=== PATIENT | female | born 1960 ===

== ENCOUNTER 2018-03-26 07:58 | Inpatient (IN) ==
[2018-03-26 08:51] LABS: Basophils % 0.2 % (0.0-0.8); Hematocrit 38.9 VOL% (35.7-47.0); Hemoglobin 12.2 GM/DL (12.0-16.0); Immature Granulocytes % 2.2 %; Immature Granulocytes Absolute 0.28 #; Lymphocytes # 0.7 10*3/uL (1.4-4.0); Lymphocytes % 5.1 % (21.3-54.2); Mean Corpuscular HGB Conc 31.4 GM/DL (32-36); Mean Corpuscular Hemoglobin 28 PG (27-34); Mean Corpuscular Volume 88.4 FL (87-102); Mean Platelet Volume 11.4 FL (9.6-12.0); Monocytes # 1.6 10*3/uL (0.11-0.8); Monocytes % 12.2 % (1.7-12.7); NRBC # 0.04 10*3/uL; Neutrophils # 10.4 10*3/uL (1.4-7.4); Neutrophils % 80.3 % (38.7-73.9); Platelet Count 131 T/CUMM (130-400); Red Cell Distribution Width 26.9 % (9.3-17.3)
[2018-03-26 09:15] LABS: Lactic Acid 14.2 MMOL/L (0.4-2.0)
[2018-03-26 09:16] LABS: Albumin 1.7 G/DL (3.4-5.0); Calcium 8.1 MG/DL (8.5-10.1); Osmolality,Calculated 273.7 MOS/KG (273-304); Potassium 5.8 MMOL/L (3.5-5.1); Total Protein 7.4 G/DL (6.4-8.3)
[2018-03-26 09:17] LABS: Macrocytosis 1+; Platelet Estimate Adequate; Poikilocytosis 1+
[2018-03-26 09:18] LABS: Anisocytosis 2+; Bilirubin,Total 16.5 MG/DL (0.2-1.0); Polychromasia Slight
[2018-03-26] MEDS ORDERED: MEROPENEM 1,000 MG in SODIUM CHLORIDE 0.9% 100 ML IV STA (10:11)
[2018-03-26] MEDS ORDERED: ALBUTEROL 2.5 MG/3 ML NEB RESP TX PRN (10:30)
[2018-03-26] MEDS ORDERED: ONDANSETRON 4 MG/2 ML VIAL IV PRN (10:30)
[2018-03-26] MEDS ORDERED: PROMETHAZINE 25 MG TABLET PO PRN (10:30)
[2018-03-26] MEDS ORDERED: SODIUM CHLORIDE 0.9% 1,000 ML IV STA (10:46)
[2018-03-26] MEDS: DEXTROSE 5% NACL 0.45% 1,000 ML IV SCH ×2 (11:13→18:00)
[2018-03-26 11:32] LABS: INR 3.5
[2018-03-26 11:33] LABS: Apearance,Urine CLOUDY (Clear); Blood, Urine Negative (Negative); Glucose,Urine (UA) Negative (Negative); Hyaline Casts,Urine 57 /LPF (0-3); Ketones,Urine 5 mg/dL (Negative); Mucus,Urine Moderate /LPF (Occasional); Nitrite,Urine Negative (Negative); Protein,Urine Negative; RBC,Urine 3 /HPF (0-4); Urine Color Amber (Yellow); Urine Specific Gravity 1.019 (1.001-1.035)
[2018-03-26 11:34] LABS: Bilirubin,Urine Moderate mg/dL (Negative)
[2018-03-26] MEDS: ENOXAPARIN 30 MG/0.3 ML SYRINGE SUBCUT SCH (11:38)
[2018-03-26 11:39] LABS: Partial Thromboplastin Time 61.8 SECS (0-40)
[2018-03-26] MEDS: LACTULOSE 20 GM/30 ML UDCUP PO SCH ×2 (13:35→21:14)
[2018-03-26 14:19] LABS: Hepatitis A Ab IgM Quant 0.21 Index; Hepatitis A Ab IgM Result Negative (Negative); Hepatitis B Core IgM Quant 0.05 Index; Hepatitis B Core IgM Result Negative (Negative); Hepatitis B Surface Ag Quant < 0.10 Index; Hepatitis B Surface Ag Result Negative (Negative); Hepatitis C Virus Ab Quant 0.13 Index; Hepatitis C Virus Ab Result Negative (Negative)
[2018-03-26 14:28] LABS: Apearance,Urine CLOUDY (Clear); Blood, Urine Negative (Negative); Glucose,Urine (UA) Negative (Negative); Hyaline Casts,Urine 72 /LPF (0-3); Ketones,Urine 5 mg/dL (Negative); Mucus,Urine Occasional /LPF (Occasional); Nitrite,Urine Negative (Negative); Protein,Urine Negative; RBC,Urine 1 /HPF (0-4); Squamous Epithelial Cell,Urine Occasional /HPF (0-10); Urine Color Amber (Yellow); Urine Specific Gravity 1.019 (1.001-1.035); WBC,Urine 3 /HPF (0-6); White Blood Cell Casts,Urine 17 /LPF (<1)
[2018-03-26 14:29] LABS: Bilirubin,Urine Moderate mg/dL (Negative)
[2018-03-26 15:51] LABS: Cancer Antigen 19-9 < 0.0 U/ML (0-37); Carcinoembryonic Antigen 5.9 NG/ML (0.0-5.0)
[2018-03-26 16:04] LABS: Albumin 1.5 G/DL (3.4-5.0); Calcium 7.1 MG/DL (8.5-10.1); Osmolality,Calculated 280.4 MOS/KG (273-304); Potassium 5.8 MMOL/L (3.5-5.1); Total Protein 6.2 G/DL (6.4-8.3)
[2018-03-26 16:07] LABS: Bilirubin,Total 15.8 MG/DL (0.2-1.0)
[2018-03-26] MEDS: PHENYLEPHRINE DRIP 40 MG/250 ML PREMIX IV PRN (18:58)
[2018-03-26] MEDS: MEROPENEM 500 MG in SODIUM CHLORIDE 0.9% 100 ML IV SCH (21:14)
[2018-03-26] MEDS: FAMOTIDINE 20 MG TABLET PO SCH (21:14)
[2018-03-27] MEDS: DEXTROSE 5% NACL 0.45% 1,000 ML IV SCH (02:11)
[2018-03-27 04:37] LABS: Basophils % 0.3 % (0.0-0.8); Eosinophils # 0.1 10*3/uL (0.0-0.87); Eosinophils % 0.8 % (0.00-10.9); Hematocrit 35.2 VOL% (35.7-47.0); Hemoglobin 11.1 GM/DL (12.0-16.0); Immature Granulocytes % 5.1 %; Immature Granulocytes Absolute 0.75 #; Lymphocytes # 0.9 10*3/uL (1.4-4.0); Lymphocytes % 5.8 % (21.3-54.2); Mean Corpuscular HGB Conc 31.5 GM/DL (32-36); Mean Corpuscular Hemoglobin 27 PG (27-34); Mean Corpuscular Volume 85.4 FL (87-102); Monocytes % 13.3 % (1.7-12.7); NRBC # 0.12 10*3/uL; Neutrophils % 74.7 % (38.7-73.9); Platelet Count 146 T/CUMM (130-400); Red Blood Count 4.12 MC/CUMM (3.8-5.5); Red Cell Distribution Width 26.6 % (9.3-17.3); White Blood Count 14.7 T/CUMM (4-12)
[2018-03-27 05:03] LABS: PT Patient Result 42.7 SECS
[2018-03-27 05:20] LABS: Albumin 1.6 G/DL (3.4-5.0); Calcium 7.1 MG/DL (8.5-10.1); Osmolality,Calculated 276.5 MOS/KG (273-304); Potassium 5.2 MMOL/L (3.5-5.1); Total Protein 6.2 G/DL (6.4-8.3)
[2018-03-27 05:24] LABS: Bilirubin,Total 16.7 MG/DL (0.2-1.0)
[2018-03-27 06:13] LABS: Band Neutrophils 6 % (0-10); Eosinophils 1 % (0-10); Lymphocytes 6 % (20-55); Metamyelocytes 1 %; Nucleated Red Blood Cells 1 (0-5); Segmented Neutrophils 79 % (50-85); Total Cells Counted 100
[2018-03-27 06:15] LABS: Giant Platelets Few; Hypochromasia 1+; Ovalocytes 2+; Platelet Estimate Normal; Polychromasia Few; Target Cells Few
[2018-03-27 06:16] LABS: Burr Cells 1+; Schistocytes Few
[2018-03-27] MEDS ORDERED: MORPHINE 4 MG/1 ML VIAL ONE (08:05)
[2018-03-27] MEDS ORDERED: METOCLOPRAMIDE 10 MG/2 ML VIAL IV PRN (08:06)
[2018-03-27] MEDS ORDERED: SODIUM CHLORIDE 0.9% 1,000 ML IV ONE (08:07)
[2018-03-27] MEDS: MORPHINE 4 MG/1 ML VIAL IV PRN ×2 (08:10→17:30)
[2018-03-27] MEDS: PHENYLEPHRINE DRIP 40 MG/250 ML PREMIX IV PRN ×2 (08:16→20:10)
[2018-03-27] MEDS: MEROPENEM 500 MG in SODIUM CHLORIDE 0.9% 100 ML IV SCH ×2 (09:13→21:26)
[2018-03-27] MEDS: DEXTROSE 5% NACL 0.9% 1,000 ML IV SCH ×2 (09:13→17:56)
[2018-03-27] MEDS: FAMOTIDINE 20 MG TABLET PO SCH ×2 (10:40→21:26)
[2018-03-27] MEDS: LACTULOSE 20 GM/30 ML UDCUP PO SCH ×2 (10:40→21:26)
[2018-03-27] MEDS: ENOXAPARIN 30 MG/0.3 ML SYRINGE SUBCUT SCH (10:41)
[2018-03-27] MEDS ORDERED: HEPARIN 5,000 UNIT/1 ML VIAL IV ONE (13:03)
[2018-03-27] MEDS ORDERED: HEPARIN DRIP 25,000 UNITS/500 ML PREMIX IV SCH (13:30)
[2018-03-28] MEDS: DEXTROSE 5% NACL 0.9% 1,000 ML IV SCH ×2 (03:20→09:38)
[2018-03-28] MEDS: MORPHINE 4 MG/1 ML VIAL IV PRN ×4 (03:27→22:37)
[2018-03-28 03:56] LABS: Basophils # 0.1 10*3/uL (0.0-0.2); Basophils % 0.3 % (0.0-0.8); Eosinophils % 0.1 % (0.00-10.9); Hematocrit 36.3 VOL% (35.7-47.0); Hemoglobin 11.4 GM/DL (12.0-16.0); Immature Granulocytes % 6.4 %; Immature Granulocytes Absolute 0.92 #; Lymphocytes # 0.7 10*3/uL (1.4-4.0); Lymphocytes % 4.7 % (21.3-54.2); Mean Corpuscular HGB Conc 31.4 GM/DL (32-36); Mean Corpuscular Hemoglobin 27 PG (27-34); Mean Corpuscular Volume 87.1 FL (87-102); Mean Platelet Volume 10.7 FL (9.6-12.0); Monocytes # 1.7 10*3/uL (0.11-0.8); Monocytes % 11.6 % (1.7-12.7); NRBC # 0.15 10*3/uL; Neutrophils # 11.1 10*3/uL (1.4-7.4); Neutrophils % 76.9 % (38.7-73.9); Platelet Count 116 T/CUMM (130-400); Red Blood Count 4.17 MC/CUMM (3.8-5.5); Red Cell Distribution Width 27.4 % (9.3-17.3); White Blood Count 14.5 T/CUMM (4-12)
[2018-03-28 04:04] LABS: INR 4.4
[2018-03-28 04:06] LABS: PT Patient Result 46.7 SECS
[2018-03-28 04:36] LABS: Albumin 1.5 G/DL (3.4-5.0); Calcium 6.9 MG/DL (8.5-10.1); Potassium 4.9 MMOL/L (3.5-5.1); Total Protein 6.1 G/DL (6.4-8.3)
[2018-03-28 04:38] LABS: Band Neutrophils 6 % (0-10); Lymphocytes 2 % (20-55); Metamyelocytes 1 %; Myelocytes 1 %; Segmented Neutrophils 82 % (50-85); Total Cells Counted 100
[2018-03-28 04:40] LABS: Acanthocytes 1+; Anisocytosis 1+; Ovalocytes 1+
[2018-03-28 04:41] LABS: Platelet Estimate Adequate; Target Cells Few
[2018-03-28 04:42] LABS: Bilirubin,Total 18.1 MG/DL (0.2-1.0)
[2018-03-28] MEDS: PHENYLEPHRINE DRIP 40 MG/250 ML PREMIX IV PRN ×2 (06:22→17:17)
[2018-03-28] MEDS: SODIUM BICARB INJ 150 MEQ in STERILE WATER INJ 850 ML IV SCH ×2 (09:37→18:38)
[2018-03-28] MEDS: MEROPENEM 500 MG in SODIUM CHLORIDE 0.9% 100 ML IV SCH ×2 (09:37→22:38)
[2018-03-28] MEDS: FAMOTIDINE 20 MG TABLET PO SCH ×2 (12:17→22:39)
[2018-03-28] MEDS: LACTULOSE 20 GM/30 ML UDCUP PO SCH ×2 (12:17→22:39)
[2018-03-29] MEDS: PHENYLEPHRINE DRIP 40 MG/250 ML PREMIX IV PRN (00:08)
[2018-03-29] MEDS ORDERED: LORazepam 2 MG/1 ML VIAL IV PRN (00:22)
[2018-03-29] MEDS ORDERED: MORPHINE 4 MG/1 ML VIAL IV PRN (00:22)
[2018-03-29] MEDS: SODIUM BICARB INJ 150 MEQ in STERILE WATER INJ 850 ML IV SCH (05:04)
[2018-03-29 05:27] VITALS: BP 51/21
[2018-03-31 12:31] LABS: Cancer Antigen 125 716 U/mL (<46)
[2018-04-01 09:20] LABS: Breast Carcinoma Ag(CA 27.29) 909 U/mL (<=38.0)
== END 2018-03-29 05:15 | disposition expired | DRG 441 ==
LOC: EDUNIT# → EDBD → N.ED 07:58 → N.EDINP 10:30 → SUATTDRO 10:30 → N.ICU 11:48
PROVIDERS: ADMIT Family Medicine; ATTEND Family Medicine